=== PATIENT | female | born 1935 | race Caucasian/White ===

== ENCOUNTER 2019-01-07 02:45 | Inpatient (IN) | payer MEDICARE, MEDICAID ==
[~2019-01-07] VITALS: Ht 152.4 cm; Wt 82.6 kg
[~2019-01-07 02:45] MED LIST: ASPI-1393 PO; GABA-531 PO; HYDR25TA PO; METF-414 PO; METO-539 PO
[2019-01-07] MEDS ORDERED: ACETAMINOPHEN 325MG TABLET PO STA (03:20)
[2019-01-07] MEDS ORDERED: PIPERACILLIN/TAZ 3.375G PREMIX 50 ML IV ONE (03:30)
[2019-01-07] MEDS ORDERED: VANCOMYCIN 1 G PREMIX 200 ML IV ONE (03:30)
[2019-01-07] MEDS ORDERED: SODIUM CHLORIDE 0.9% 1000ML BAG (SEPSIS BOLUS) IV ONE (03:30)
[2019-01-07 04:00] LABS: CHLORIDE 97 mEq/L (98-107)
[2019-01-07 04:10] LABS: HEMATOCRIT. 31.5 % (36.0-48.0); HEMOGLOBIN. 10.7 g/dL (12.0-16.0); MEAN CORPUSCULAR VOLUME 79.1 fL (81.0-99.0); MEAN PLATELET VOLUME 7.9 fl (7.4-10.4); PLATELET 480 x1000/uL (130-400); RED BLOOD CELL COUNT 3.99 mill/uL (4.2-5.4); RED CELL DISTRIBUTION WIDTH 14.6 % (11.6-14.6)
[2019-01-07 04:14] LABS: PROTHROMBIN TIME 10.4 sec (9.6-11.0)
[2019-01-07] MEDS ORDERED: POTASSIUM CHLORIDE 20MEQ TABLET SR PO ONE (04:15)
[2019-01-07] MEDS ORDERED: KCL 10MEQ/50ML PREMIX 50 ML IV ONE (04:15)
[2019-01-07 05:19] LABS: CLARITY URINE CLOUDY (CLEAR); COLOR URINE DARK YELLOW (YELLOW); KETONES URINE TRACE (NEGATIVE); LEUKOCYTE ESTERASE URINE 2+ (NEGATIVE); NITRITE URINE NEGATIVE (NEGATIVE); OCCULT BLOOD URINE 1+ (NEGATIVE); PROTEIN URINE 2+ (NEGATIVE); SPECIFIC GRAVITY URINE 1.022 (1.005-1.030)
[2019-01-07 06:22] LABS: PLATELET ESTIMATE SLIGHTLY INCREASED
[2019-01-07] MEDS ORDERED: CLONIDINE 0.1MG TABLET PO PRN (06:30)
[2019-01-07] MEDS ORDERED: MORPHINE SULFATE 2 MG/ML CPJ (NOT FOR IM USE) IV PRN (06:30)
[2019-01-07] MEDS ORDERED: LEVOFLOXACIN 500MG PREMIX 100 ML IV SCH ×2 (06:30→11:00)
[2019-01-07] MEDS ORDERED: HYDROCODONE/ACETAMINOPHEN 5/325MG TABLET PO PRN (06:30)
[2019-01-07] MEDS ORDERED: ONDANSETRON HCL 4MG/2ML INJ IV PRN (06:30)
[2019-01-07] MEDS ORDERED: DOCUSATE SODIUM 100MG CAPSULE PO PRN (06:30)
[2019-01-07] MEDS ORDERED: IOHEXOL-300 100 ML BOTTLE ONE ×2 (07:43→23:28)
[2019-01-07 08:00] VITALS: BP 121/73
[2019-01-07] MEDS ORDERED: DEXTROSE 50% WATER 50ML SYRINGE IV PRN (09:00)
[2019-01-07 09:18] VITALS: BP 121/73
[2019-01-07] MEDS: ENOXAPARIN 40MG/0.4ML SYR SUBCUT SCH (09:56)
[2019-01-07] MEDS: INSULIN LISPRO 100 UNITS/ML SUBCUT SCH ×4 (09:57→20:31)
[2019-01-07] MEDS: BLOOD SUGAR DIAGNOSTIC STRIP TEST SCH ×4 (09:57→20:08)
[2019-01-07] MEDS ORDERED: KCL 10MEQ/50ML PREMIX 50 ML IV SCH (11:00)
[2019-01-07] MEDS: SODIUM CHLORIDE 0.45% 1,000 ML IV SCH (11:04)
[2019-01-07 12:00] VITALS: BP 136/64
[2019-01-07 16:00] VITALS: BP 121/105
[2019-01-07] MEDS: ACETAMINOPHEN 325MG TABLET PO PRN ×2 (16:38→23:19)
[2019-01-07 20:00] VITALS: BP 102/46
[2019-01-08] VITALS: BP_SYST 118; BP_SYST 156; BP_DIAS 55; BP_DIAS 67
[2019-01-08 04:00] VITALS: BP 156/67
[2019-01-08] MEDS: INSULIN LISPRO 100 UNITS/ML SUBCUT SCH ×4 (06:35→21:00)
[2019-01-08] MEDS: BLOOD SUGAR DIAGNOSTIC STRIP TEST SCH ×4 (06:35→21:39)
[2019-01-08 07:02] LABS: BASOPHILS % 0.8 % (0.0-2.0); EOSINOPHILS % 0.7 % (0.0-5.0); HEMATOCRIT. 30.9 % (36.0-48.0); HEMOGLOBIN. 10.2 g/dL (12.0-16.0); LYMPHOCYTES % 10.4 % (20.0-50.0); MEAN CORPUSCULAR HEMOGLOBIN 26.2 pg (28.0-32.0); MEAN CORPUSCULAR VOLUME 79.4 fL (81.0-99.0); MONOCYTES % 6.5 % (2.0-8.0); NEUTROPHILS % 81.6 % (40.0-76.0); PLATELET 412 x1000/uL (130-400); RED BLOOD CELL COUNT 3.89 mill/uL (4.2-5.4); RED CELL DISTRIBUTION WIDTH 14.8 % (11.6-14.6)
[2019-01-08 07:15] LABS: CHLORIDE 103 mEq/L (98-107)
[2019-01-08] MEDS ORDERED: KETOROLAC 30MG/ML VIAL IV NR (07:45)
[2019-01-08 08:00] VITALS: BP 143/55
[2019-01-08] MEDS: SODIUM CHLORIDE 0.45% 1,000 ML IV SCH ×2 (08:41→18:50)
[2019-01-08] MEDS: ENOXAPARIN 40MG/0.4ML SYR SUBCUT SCH (08:42)
[2019-01-08] MEDS ORDERED: POTASSIUM CHLORIDE 20MEQ TABLET SR PO NR (10:45)
[2019-01-08] MEDS: LEVOFLOXACIN 250MG PREMIX 50 ML IV SCH (11:06)
[2019-01-08 12:00] VITALS: BP 132/58
[2019-01-08] MEDS: KETOROLAC 15MG/ML VIAL IV SCH ×2 (12:25→17:56)
[2019-01-08 16:00] VITALS: BP 159/72
[2019-01-08 20:00] VITALS: BP 171/79
[2019-01-09] VITALS: BP 118/48
[2019-01-09 04:00] VITALS: BP 142/48
[2019-01-09] MEDS: ACETAMINOPHEN 325MG TABLET PO PRN (05:39)
[2019-01-09] MEDS: KETOROLAC 15MG/ML VIAL IV SCH ×3 (05:39→12:00)
[2019-01-09] MEDS: INSULIN LISPRO 100 UNITS/ML SUBCUT SCH ×2 (06:43→13:03)
[2019-01-09] MEDS: BLOOD SUGAR DIAGNOSTIC STRIP TEST SCH ×2 (06:43→11:45)
[2019-01-09 07:41] LABS: CHLORIDE 107 mEq/L (98-107)
[2019-01-09 08:00] VITALS: BP 126/84
[2019-01-09 08:28] LABS: BASOPHILS % 0.9 % (0.0-2.0); EOSINOPHILS % 1.5 % (0.0-5.0); HEMATOCRIT. 27.9 % (36.0-48.0); HEMOGLOBIN. 9.6 g/dL (12.0-16.0); LYMPHOCYTES % 11.9 % (20.0-50.0); MEAN CORPUSCULAR VOLUME 78.3 fL (81.0-99.0); MONOCYTES % 9.3 % (2.0-8.0); NEUTROPHILS % 76.4 % (40.0-76.0); PLATELET 400 x1000/uL (130-400); RED BLOOD CELL COUNT 3.57 mill/uL (4.2-5.4); RED CELL DISTRIBUTION WIDTH 14.8 % (11.6-14.6)
[2019-01-09] MEDS: ENOXAPARIN 40MG/0.4ML SYR SUBCUT SCH (09:36)
[2019-01-09] MEDS: LEVOFLOXACIN 250MG PREMIX 50 ML IV SCH (10:30)
[2019-01-09] MEDS: SODIUM CHLORIDE 0.45% 1,000 ML IV SCH (10:31)
[2019-01-09 14:26] VITALS: BP 126/84
[2019-01-09] MEDS ORDERED: ATORVASTATIN CALCIUM 10MG TABLET PO SCH (21:00)
== END 2019-01-09 16:40 | disposition home health service (06) | DRG 872 ==
LOC: ER 02:45 → 5WST 04:59 → EDBEDREQ 05:02 → EDBEDREQTM 05:02 → SUPCPDRO 06:19 → ENRESERV 07:46
PROVIDERS: ADMIT Hospitalist; ATTEND Hospitalist
DX: A41.9 Sepsis, unspecified organism (principal); N10 Acute pyelonephritis; N13.2 Hydronephrosis with renal and ureteral calculous obstruction; E44.0 Moderate protein-calorie malnutrition; I10 Essential (primary) hypertension; E78.00 Pure hypercholesterolemia, unspecified; K57.90 Diverticulosis of intestine, part unspecified, without perforation or abscess without bleeding; K76.0 Fatty (change of) liver, not elsewhere classified; R91.8 Other nonspecific abnormal finding of lung field; E11.65 Type 2 diabetes mellitus with hyperglycemia; E78.5 Hyperlipidemia, unspecified; D25.9 Leiomyoma of uterus, unspecified; Z90.49 Acquired absence of other specified parts of digestive tract; Z79.4 Long term (current) use of insulin; Z80.0 Family history of malignant neoplasm of digestive organs; Z87.442 Personal history of urinary calculi; Z68.35 Body mass index [BMI] 35.0-35.9, adult
CPT/HCPCS: 36415; 71045; 71250; 74176; 74177; 81003; 82962; 83605; 83735; 84145; 84484; 93005; 93970; 97162; 99291; J1650; J1815; J1885; J1956; J2543; J3370; J3480; J7030; Q9967